=== PATIENT | male | born 1955 | race Caucasian/White ===

== ENCOUNTER → 2022-07-18 13:58 | Outpatient (REF) | payer OTHER, SELFPAY ==
--- NOTE | 2022-07-18 14:01 | CA_ITS ---
Transthoracic Echocardiogram Patient (Last, First, Middle): Anthony Lopez A Gender: Male Date of : 1955 Age: 67 Procedure Date: 07/18/2022 Procedure Type: Transthoracic Echocardiogram Location: OP Height: 170.18 cm Weight: 78.02 kg BSA: 1.90 m2 Heart Rate: bpm BP: 120 / 70 mmHg Ramp Service Agent: LEO Walsh MD: Sita Oglesby MD Jewelry Bearing Maker: Douglas Velasco MD Symptoms: R01.1 - Cardiac murmur, unspecified Study Quality: Adequate ECG Rhythm: Sinus Conclusions: - 1. Normal LV systolic function with mild LVH with impaired relaxation filling pattern and elevated filling pressures 2. Moderate mitral calcification with normal cardiac valvular Doppler 3. No gross pericardial effusion Findings Left Ventricle Normal left ventricular size and systolic function. There is mildly increased left ventricular wall thickness. The visually estimated ejection fraction is between 65-70%. Spectral Doppler is indicative of an impaired relaxation filling pattern. Elevated filling pressures. Right Ventricle Normal right ventricular cavity size and systolic function. Atria The left atrium is likely dilated. The right atrium is normal in size. Aortic Valve There is mild calcification of the aortic valve. There is no aortic valve stenosis. There is no aortic valve regurgitation. Mitral Valve There is mild anterior and moderate posterior mitral leaflet thickening. There is moderate mitral annular calcification. There is trace mitral valve regurgitation. There is no mitral valve stenosis. Pulmonic Valve The pulmonic valve was not well visualized. Tricuspid Valve Likely normal tricuspid valve structure and function. Tricuspid regurgitation envelope is inadequate for calculation of right ventricular systolic pressure. Normal right atrial pressure. Great Vessels All visible segments of the aorta are normal in size. The pulmonary artery was not well visualized. Venous The inferior vena cava is normal in size and collapses greater than 50% with inspiration. Pericardium/Pleural There is no evidence of pericardial effusion. Prior Study Comparison No prior study available for comparison. Measurements 2D Linear Measurements IVSd: 1.29 0.6-0.9/0.6-1.0 cm LVIDd: 3.72 3.9-5.3/4.2-5.9 cm LVIDd Index: 1.96 2.4-3.2/2.2-3.1 cm/m2 LVIDs: 2.75 2.0-3.6 cm LVPWd: 1.13 0.7-1.1 cm LA Diam: 4.10 2.7-3.8/3.0-4.0 cm LAIDs Index: 2.16 1.5-2.3 cm/m2 LV Mass: 187.20 67-162/88-224 g LV Mass Index: 98.52 43-95/49-115 g/m2 LVOT Diam: 2.00 3.0+(-)1.3 cm 2D Systolic Function EF 4C: 69.70 >55% EF 2C: 63.70 >55% EF BiP: 68.30 >55% Mitral Valve MV Pk E: 0.92 MV PK A: 1.01 MV Decel Time: 327.00 E/A: 0.90 E'Lateral: 6.08 E'Medial: 4.87 E/E' Med: 18.90 E/E' Lat: 15.10 PHT: 96.00 MVA PHT: 2.29 Decel [place]: 2.81 Aortic Valve AoV Pk Tho: 0.97 AoV Mn Toh: 0.71 AoV VTI: 0.22 AoV Pk Grad: 4.00 Aov Mn Grad: 2.00 CESAR Cont.VTI: 2.86 LVOT LVOT Pk Tho: 0.95 LVOT Mn Tho: 0.68 LVOT VTI: 0.20 LVOT Pk Grad: 4.00 LVOT Mn Grad: 2.00 LVOT Diam: 2.00 LVOT Area: 3.14 Diastolic Function MV Pk E: 0.92 MV Pk A: 1.01 E/A: 0.90 E'Medial: 4.87 E/E' Med: 18.90 E' Laterial: 6.08 E/E' Lat: 15.10 Right Ventricle TAPSE (mm): 12.60 TVS' Tho: 5.84 Tricuspid Valve RA Press: 3.00 Great Vessels Aorta Sinus of Valsalva: 3.40 2.0-3.5 cm Ao Asc: 2.70 2.1-3.4 cm Pulmonary Valve PV Pk Tho: 0.81 Peak PV Grad: 3.00 Updated in Other Vendor System with Status of Final Douglas Velasco MD electronically signed on 07/19/2022 12:46:45 PM with status of Final
== END ==
LOC: HO.CARD 13:58
PROVIDERS: PCP Internal Medicine; Visit Provider Internal Medicine
DX: R01.1 Cardiac murmur, unspecified (principal); R06.00 Dyspnea, unspecified; R06.89 Other abnormalities of breathing
CPT/HCPCS: 93306

== ENCOUNTER 2023-05-30 09:20 | Outpatient (AMB) | payer OTHER, SELFPAY ==
--- NOTE | 2023-05-30 09:22 | MHC.OFFVIS ---
Intake Vital Signs 05/30/23 09:26 BMI Reason not done Patient refused/unable BP 92/58 L Blood Pressure Location Lt brachial Position Sitting Pulse 58 Pulse Source Pulse Oximeter Intake Visit Reasons: Dm2 Intake Note: New patient present today for Type 2 Diabetes Mellitus. Last Diabetic Eye exam: More than 1 year, waiting for next appointment. Last Podiatry Visit: patient left and right legs are amputated. Random Glucose: 300 mg/dl HgA1C: 9.4% 03/14/2023 Production Controller Required: Yes Production Controller Language: Second Facing Baster Name: Brittney, Medical Staff Information Interpreted: non-clinical & clinical Accompanied by: Brother Venu Allergies No Known Allergies [No Known Allergies*] Allergy (Verified 05/30/23 09:27) HPI HPI Comments History of Present Illness Details 68 YO M who is seen in consultation for T2DM at the request of PCP. Initially diagnosed with T2DM in 20 yrs ago . Never saw endo before Was initially started on treatment with []. Current regimen metformin 1000 mg BID Tresiba 20 units . Novolog 15 units aC Unfortunately, patient not bring log book or glucometer or sensor to visit No Reports low sugars . Family history of T2DM in mother grandmother ? Type . Not Has eyes checked yearly, last eye exam yrs ago , denies retinopathy. has neuropathy, last foot exam , sees podiatry.amputation R AKA 2020 L BKA long time ago Denies nephropathy, Not on STANLEY/ARB. UAC [] as measured on []. Has HLD, on statin. Last LDL [] as measured on []. Denies CAD. CVA while ago Not Had diabetes education. [facility] Medical History (Updated 03/14/23 @ 12:57 by SYDNEY Kumar) Below-knee amputation of right lower extremity Chronic anticoagulation Constipation by delayed colonic transit Depression Diabetes mellitus Difficulty swallowing Dyspnea and respiratory abnormalities GERD (gastroesophageal reflux disease) History of left below knee amputation Hypertension Left shoulder pain Leg edema Long-term use of aspirin therapy Mild depression Mood disorder Neuropathy Pure hypercholesterolemia PVD (peripheral vascular disease) Right shoulder pain Stroke Surgical History Below-knee amputation of left lower extremity History of amputation History of angioplasty Hx of CABG S/P CABG x 3 Family History Father No problems noted. Mother Diabetes Hypertension Son No problems noted. Son No problems noted. Daughter No problems noted. Daughter No problems noted. Social History Housing: House Alcohol intake: former Patient Tobacco Use Status: Former Tobacco user Tobacco use type: Cigarette e-Cigarette/Vaping Use: Never Used Second Hand Smoke Exposure: No service: No Current occupational status: disabled Cognitive needs: Yes Hearing needs: No Vision needs: No Physical Exam Vital Signs: Last Vital Signs Pulse 58 05/30/23 09:26 BP 92/58 L 05/30/23 09:26 Absence of Cushingoid features. Absence of acromegalic features. Neck exam reveals nl size thyroid about 15 gms. No thyroid nodules palpable. No carotid bruits present. Lungs CTA. Heart S1 S2, Reg R/R. No M/R/ G. Skin exam reveals absence of vitiligo or acanthosis nigricans. Abdominal exam reveals Soft NT/ND with NA BS. No organomegaly present. Neck Other: . Extrem Other: Visual exam of foot performed. No ulcerations or open lesions. Right [id number] amputation and left above the knee amputation present Results Reviewed Results Reviewed: 05/30/23 09:37 Glucose, Whole Blood Routine Laboratory Last Values Glucose (Clinic) 300 mg/dL (60-115) H 05/30/23 09:37 Assessment & Plan Assessment & Plan (1) Diabetes mellitus: Code(s): E11.9 - Type 2 diabetes mellitus without complications Qualifiers: Diabetes mellitus complication status: with hyperglycemia Diabetes mellitus half-way insulin use: with middle or intermediate school principal use Diabetes mellitus type: type 2 Qualified Code(s): E11.65 - Type 2 diabetes mellitus with hyperglycemia; Z79.4 - retirement (current) use of insulin Plan: This 68-year-old male with a history of type 2 diabetes being treated with metformin and basal insulin poor glycemic control and known microvascular complications namely neuropathy. Plan is to have the patient check his point cares pre and post meals. Would be a good candidate for a sensor. Could not make any changes to regimen because of lack of data. 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 Will check basic metabolic panel, lipid profile and microalbumin to creatinine ratio. Via a wincher went over the correlation of poor glycemic control to development and progression of complications Orders: Orders Basic Metabolic Panel Today E11.9 - Type 2 diabetes mellitus without complications Lipid Panel Today E11.9 - Type 2 diabetes mellitus without complications Microalbumin, Random (w Creat) Today E11.9 - Type 2 diabetes mellitus without complications Referrals Diabetes Education Referral E11.9 - Type 2 diabetes mellitus without complications Nutrition/Dietitian Referral E11.9 - Type 2 diabetes mellitus without complications Coding Level of Care Code New Pt Level 5 (55391) Diagnoses Diabetes mellitus E11.65; Z79.4 Diabetes mellitus complication status: with hyperglycemia Diabetes mellitus middle or intermediate school principal insulin use: with half-way use Diabetes mellitus type: type 2 Time Spent (min) 60 Comment A total of 60 minutes was spent reviewing chart, seeing patient and dictating
[2023-05-30 09:26] VITALS: BP 92/58; PULSE 58
[2023-05-30 09:40] LABS: Glucose, Whole Blood 300 mg/dL (60-115)
== END 2023-05-30 10:15 | disposition home or self-care (01) ==
PROVIDERS: PCP Internal Medicine; Visit Provider Internal Medicine Endocrinology, Diabetes & Metabolism
DX: E11.65 Type 2 diabetes mellitus with hyperglycemia (principal); Z79.4 Long term (current) use of insulin
CPT/HCPCS: 99205

== ENCOUNTER → 2023-05-30 09:20 | Outpatient (BNVA) | payer OTHER, SELFPAY | PROVIDERS: Visit Provider Internal Medicine Endocrinology, Diabetes & Metabolism | DX: E11.65 Type 2 diabetes mellitus with hyperglycemia (principal); Z79.4 Long term (current) use of insulin | CPT/HCPCS: 82947; 99202 ==

== ENCOUNTER 2023-06-05 07:45 | Outpatient (AMB) | payer OTHER, SELFPAY ==
--- NOTE | 2023-06-05 08:41 | MHC.AMDMED ---
Intake Intake Visit Reasons: DM2 Physician Scientist Required: Yes Physician Scientist Language: Web Press Operator Helper Offset Name: Alis [facility] Accompanied by: Other Relationship Allergies No Known Allergies [No Known Allergies*] Allergy (Verified 05/30/23 09:27) HPI Comprehensive Diabetes Asmnt Most Recent Diabetes Results: No Data to Display [facility] Medical History (Updated 03/14/23 @ 12:57 by SYDNEY Kumar) Below-knee amputation of right lower extremity Chronic anticoagulation Constipation by delayed colonic transit Depression Diabetes mellitus Difficulty swallowing Dyspnea and respiratory abnormalities GERD (gastroesophageal reflux disease) History of left below knee amputation Hypertension Left shoulder pain Leg edema Long-term use of aspirin therapy Mild depression Mood disorder Neuropathy Pure hypercholesterolemia PVD (peripheral vascular disease) Right shoulder pain Stroke Surgical History Below-knee amputation of left lower extremity History of amputation History of angioplasty Hx of CABG S/P CABG x 3 Family History Father No problems noted. Mother Diabetes Hypertension Son No problems noted. Son No problems noted. Daughter No problems noted. Daughter No problems noted. Social History Housing: House Alcohol intake: former Patient Tobacco Use Status: Former Tobacco user Tobacco use type: Cigarette e-Cigarette/Vaping Use: Never Used Second Hand Smoke Exposure: No service: No Current occupational status: disabled Cognitive needs: Yes Hearing needs: No Vision needs: No Assessment & Plan Assessment & Plan (1) Insulin dependent type 2 diabetes mellitus: Code(s): E11.9 - Type 2 diabetes mellitus without complications; Z79.4 - long-term (current) use of insulin Plan: CGM Info Instructed Pt on what CGM can and can't do CGM Can: Give Pt minute by minute reading of glucose levels Displays glucose trend arrows that represents the direction glucose levels are fluctuating Give insight on decisions about how to dose insulin CGM cannot: Improve glucose control on its own Completely eliminate the need for all finger sticks Make dosing decision for you CGM is the reading of glucose in the interstitial fluid not actual blood glucose, finger sticks are still necessary when Pt's symptom?s do not match sensor reading and if sensors prompts Pt to do a fingerstick At this visit patient was not ready to accept CGM recommended Instructed patient he should bring his daughter, who administers his medications and prepares his meals to his next visit Patient Instructions: Contact information given for daughter to call to set up next Diabetes Education appointment Coding Level of Care Code Est Pt Level 1 (90063) Diagnoses Insulin dependent type 2 diabetes mellitus E11.9; Z79.4
== END 2023-06-05 08:46 | disposition home or self-care (01) ==
PROVIDERS: PCP Internal Medicine; Visit Provider Registered Nurse Diabetes Educator
DX: E11.9 Type 2 diabetes mellitus without complications (principal); Z79.4 Long term (current) use of insulin

== ENCOUNTER → 2023-06-05 07:45 | Outpatient (BNVA) | payer OTHER, SELFPAY | PROVIDERS: PCP Internal Medicine; Visit Provider Registered Nurse Diabetes Educator | DX: E11.9 Type 2 diabetes mellitus without complications (principal); Z79.4 Long term (current) use of insulin | CPT/HCPCS: 99211 ==

== ENCOUNTER 2023-06-19 09:44 | Outpatient (AMB) | payer OTHER, SELFPAY ==
--- NOTE | 2023-06-19 09:48 | MHC.PC.OV ---
Vital Signs 06/19/23 09:54 BMI Reason not done Patient refused/unable BP 110/68 Blood Pressure Location Lt brachial Position Sitting Intake Visit Reasons: DM Intake Note: Patient here for a follow up DM Pest Control Worker Required: No Accompanied by: Family/Other Allergies No Known Allergies [No Known Allergies*] Allergy (Verified 06/19/23 09:59) Medication List - Last Reconciled 06/19/23 by Sita Oglesyb MD aspirin (Adult Low Dose Aspirin) 81 mg PO DAILY 30 days atorvastatin 40 mg PO BEDTIME 90 days blood sugar diagnostic (FreeStyle Lite Strips) Use 1 test strip three times a day blood-glucose meter (FreeStyle Lite Meter kit) As directed cholecalciferol (vitamin D3) 50 mcg PO DAILY 90 days clopidogrel (Plavix) 75 mg PO DAILY 30 days divalproex 125 mg PO BID ezetimibe 10 mg PO DAILY 30 days furosemide 20 mg PO DAILY 90 days gabapentin 600 mg (2 x 300 mg) PO TID insulin aspart U-100 15 units (0.15 mL) subcut TID insulin degludec (Tresiba FlexTouch U-100 insulin) 20 units subcut BEDTIME lactulose 10 grams (15 mL) PO BEDTIME PRN 90 days lancets (FreeStyle Lancets) Use 1 lancet three times a day loratadine 10 mg PO DAILY metformin 1,000 mg PO BID metoprolol succinate ER 12.5 mg (1/2 x 25 mg) PO BID pantoprazole 40 mg PO DAILY 90 days pen needle, diabetic (1st Tier Unifine Pentips) Use 1 pen needle 4 times a day pen needle, diabetic (1st Tier Unifine Pentips) Use 1 pen needle 4 times a day sennosides (senna) 8.6 mg PO BEDTIME PRN 30 days sennosides 8.6 mg PO BEDTIME 90 days starch (thickening) ([employer] Thick-It oral powder) 1 ea PO .three times a day PRN 30 days Tobacco use date assessed: 03/14/23 Fall risk assessment: No Falls in past year Last assessed Fall Risk: 06/19/23 Dental Screening Dental Screen Date: 06/19/23 Did you have a dental visit in the last 12 months?: No Did you have a dental problem in the last 6 months where you did not have access to dental care?: No Was dental information given to patient?: Patient declined HPI HPI Comments History of Present Illness Details This is a 68-year-old male with diabetes mellitus type 2 on long-term current use of insulin, mild depression, history of stroke and peripheral vascular disease that comes today accompanied by brother in law complaining of chronic idiopathic constipation and last bowel movement was 7 days ago. A1c elevated and I will increase insulin. Depression is in remission. He had a stroke few years ago and has right hemiplegia but can use left arm. Has bilateral below-knee amputation secondary to peripheral vascular disease due to being a former smoker. He will benefit from a scooter due to his conditions of requiring a wheelchair and said that on all wheelchair give seen more depression. [facility] Medical History (Updated 06/19/23 @ 12:34 by Sita Oglesby MD) Below-knee amputation of right lower extremity Chronic anticoagulation Constipation by delayed colonic transit Depression Diabetes mellitus Difficulty swallowing Dyspnea and respiratory abnormalities GERD (gastroesophageal reflux disease) History of left below knee amputation Hypertension Left shoulder pain Leg edema Long-term use of aspirin therapy Mild depression Mood disorder Neuropathy Pure hypercholesterolemia PVD (peripheral vascular disease) Right shoulder pain Stroke Surgical History Below-knee amputation of left lower extremity History of amputation History of angioplasty Hx of CABG S/P CABG x 3 Family History Father No problems noted. Mother Diabetes Hypertension Son No problems noted. Son No problems noted. Daughter No problems noted. Daughter No problems noted. Social History Housing: House Alcohol intake: former Patient Tobacco Use Status: Former Tobacco user Tobacco use type: Cigarette e-Cigarette/Vaping Use: Never Used Second Hand Smoke Exposure: No service: No Current occupational status: disabled Cognitive needs: Yes Hearing needs: No Vision needs: No Questionnaire Thrive Questionnaire Date Thrive assessed: 03/14/23 HANNA-7 AMB Questionnaire HANNA-7 Date HANNA - 7 assessed: 03/14/23 Source: Developed by Drs. Moose Garcia, Sadia Wilkins, Andrés Jeffery and colleagues, with an educational mario from [employer]. Review of Systems Const All systems reviewed & are unremarkable except as noted in HPI and below Eyes Reports no additional complaints, Denies change in vision and Denies other visual disturbances Card Denies chest pain at rest, Denies chest pain with activity, Denies edema, Denies irregular heart rhythm, Denies claudication, Denies dyspnea, Denies dyspnea on exertion, Denies orthopnea, Denies paroxysmal nocturnal dyspnea and Denies slow heart rate Resp Denies cough, Denies dyspnea and Denies dyspnea on exertion GI Denies abdominal pain, Denies change in bowel habits, Denies excessive flatus, Denies nausea and Denies vomiting Denies urinary hesitancy, Denies urinary incontinence and Denies urinary urgency Musc Denies abnormal gait, Denies atrophy, Denies deformity and Denies limited range of motion Skin/Breast Denies bleeding lesions, Denies changing lesions and Denies rash Neuro Denies abnormal gait and Denies lack of coordination Physical exam (Primary Care) Vital Signs: Last Vital Signs BP 110/68 06/19/23 09:54 Tobacco/Smoking Status: Tobacco use Status Tobacco use date assessed 03/14/23 06/19/23 09:49 Patient Tobacco Use Status Former Tobacco user 06/19/23 09:49 Tobacco use type Cigarette 06/19/23 09:49 e-Cigarette/Vaping Use Never Used 06/19/23 09:49 Thrive Assessment: Date of Thrive Assessment Date Thrive assessed 03/14/23 06/19/23 09:49 Eyes General: appearance normal, both eyes and all related structures Eyelids: Yes eyelids normal Conjunctivae: conjunctivae normal Neck Neck: Yes normal visual inspection and Yes supple Resp Effort & Inspection: normal respiratory effort Auscultation: clear to auscultation bilaterally Cardio Jugular venous distension: no JVD Rate: regular rate Rhythm: regular rhythm Heart sounds: S1 normal heart sound present and S2 normal heart sound present Extrem General: Yes full ROM Results AMB Hemoglobin A1c AMB Hemoglobin A1c 8.3 % Last Edit by MARQUEZ Shine on 06/19/23 10:00 Results Reviewed Results Reviewed: Laboratory Last Values Hgb A1c (Clinic) 8.3 % (4.0-6.0) H 06/19/23 09:47 Assessment and Plan Assessment & Plan (1) Insulin dependent type 2 diabetes mellitus: Code(s): E11.9 - Type 2 diabetes mellitus without complications; Z79.4 - [facility] (current) use of insulin Plan: Continue insulin. A1c goal is equal or less than 7%. (2) Mild depression: Code(s): F32.0 - Major depressive disorder, single episode, mild Plan: In remission (3) PVD (peripheral vascular disease): Code(s): I73.9 - Peripheral vascular disease, unspecified Plan: Continue aspirin and Plavix. (4) Stroke: Code(s): I63.9 - Cerebral infarction, unspecified Qualifiers: CVA mechanism: unspecified Qualified Code(s): I63.9 - Cerebral infarction, unspecified Plan: Continue aspirin and Plavix for secondary prophylaxis. (5) Chronic idiopathic constipation: Code(s): K59.04 - Chronic idiopathic constipation Plan: Restart lactulose as needed. Orders: Orders Vitamin B12 and Folate Today E53.8 - Deficiency of other specified B group vitamins Comprehensive Goodman. Panel Fast Today F01.51 - Vascular dementia, unspecified severity, with behavioral disturbance IRON PROFILE Today D64.9 - Anemia, unspecified Lipid Panel Today E78.5 - Hyperlipidemia, unspecified Vitamin D 25-OH Total Today E55.9 - Vitamin D deficiency, unspecified Microalbumin, Random (w Creat) Today E11.9 - Type 2 diabetes mellitus without complications Complete Blood Count Auto Diff Today D64.9 - Anemia, unspecified AMB Hemoglobin A1c Today E11.9 - Type 2 diabetes mellitus without complications Medications: Changed From insulin degludec (Tresiba FlexTouch U-100 insulin) 20 units subcut BEDTIME E11.65 - Type 2 diabetes mellitus with hyperglycemia, Z79.4 - middle or intermediate school principal (current) use of insulin To insulin degludec (Tresiba FlexTouch U-100 insulin) 25 units subcut BEDTIME E11.65 - Type 2 diabetes mellitus with hyperglycemia, Z79.4 - [facility] (current) use of insulin Refilled lactulose 10 grams (15 mL) PO BEDTIME 90 days PRN 473 mL 2RF constipation K59.01 - Slow transit constipation Coding Level of Care Code Est Pt Level 4 (84627) Diagnoses Insulin dependent type 2 diabetes mellitus E11.9; Z79.4 Mild depression F32.0 PVD (peripheral vascular disease) I73.9 Stroke I63.9 CVA mechanism: unspecified Chronic idiopathic constipation K59.04 Time Spent (min) 26
[2023-06-19 09:54] VITALS: BP 110/68
== END 2023-06-19 10:18 | disposition home or self-care (01) ==
PROVIDERS: PCP Internal Medicine; Visit Provider Internal Medicine
DX: E11.51 Type 2 diabetes mellitus with diabetic peripheral angiopathy without gangrene (principal); Z79.4 Long term (current) use of insulin; F32.0 Major depressive disorder, single episode, mild; I73.9 Peripheral vascular disease, unspecified; Z86.73 Personal history of transient ischemic attack (TIA), and cerebral infarction without residual deficits; K59.04 Chronic idiopathic constipation
CPT/HCPCS: 83036; 99214

== ENCOUNTER 2023-07-17 09:27 | Outpatient (AMB) | payer OTHER, SELFPAY ==
--- NOTE | 2023-07-17 09:37 | A.OFFVIS_ITS ---
Intake VS Expanded 07/17/23 15:48 Comment Pt in wheelchair/bilateral BKA Intake Visit Reasons: DM2 Allergies No Known Allergies [No Known Allergies*] Allergy (Verified 06/19/23 09:59) HPI Nutrition Presentation Details Pt presents for MNT for T2DM. Pt was referred by Dr Dan Pt suffered a stroke > 7 yrs , Pt has difficulties speaking. Pt presents with daughter who helps with meals preparation. typical meal B: sand ham/cheese/egg most days or hot cereal , coffee and water or diet soda L/d: rice/zelaya/meat/juice snack: sand, juice, physical activity: sedentary, Pt w bilateral below knee amputation smoking: denies Daughter reports Pt moved in with her recently, daughter verbalizes needing education on relationship of food to BG and meal planning Diagnosis Nutrition problem #1 food nutri know defi As related to (etiology) #1 diagnosis As evidenced by (sign/symptom) #1 knowledge deficit of diet Most Recent Diabetes Results: No Data to Display [facility] Medical History Below-knee amputation of right lower extremity Chronic anticoagulation Constipation by delayed colonic transit Depression Diabetes mellitus Difficulty swallowing Dyspnea and respiratory abnormalities GERD (gastroesophageal reflux disease) History of left below knee amputation Hypertension Left shoulder pain Leg edema Long-term use of aspirin therapy Mild depression Mood disorder Neuropathy Pure hypercholesterolemia PVD (peripheral vascular disease) Right shoulder pain Stroke Surgical History Below-knee amputation of left lower extremity History of amputation History of angioplasty Hx of CABG S/P CABG x 3 Family History Father No problems noted. Mother Diabetes Hypertension Son No problems noted. Son No problems noted. Daughter No problems noted. Daughter No problems noted. Social History Housing: House Alcohol intake: former Patient Tobacco Use Status: Former Tobacco user Tobacco use type: Cigarette e-Cigarette/Vaping Use: Never Used Second Hand Smoke Exposure: No service: No Current occupational status: disabled Cognitive needs: Yes Hearing needs: No Vision needs: No Assessment & Plan Assessment & Plan (1) Diabetes mellitus: Code(s): E11.9 - Type 2 diabetes mellitus without complications Qualifiers: Diabetes mellitus type: type 2 Diabetes mellitus marine oil terminal superintendent insulin use: with marine oil terminal superintendent use Diabetes mellitus complication status: with hyperglycemia Qualified Code(s): E11.65 - Type 2 diabetes mellitus with hyperglycemia; Z79.4 - assisted (current) use of insulin Plan: Information reviewed along with daughter who prepares meals for Pt Est kcal needs 1500- (40% carb, 30% protein/fat) Est fluid needs as per 25-30 ml/d: 7685-2068 Recommend fiber intake : 8-10 g per day and gradually increase to 25-28 g per day for women and 35-38 g for men or as tolerated Recommend sodium intake per day : less than 2000 mg Educated patient on: ( R = reviewed V = verbalizes understanding N/R = needs review N/A = not applicable * Food sources of carbohydrate, adequate serving sizes and its role in various health conditions: R * Differences between complex carbohydrates a simple carbohydrates, role of fiber in diet: R * lean protein sources of foods ;R * Differences between types of fats and role in diet (mono on saturated fat fatty acids, saturated fatty acids, trans fats): NR * Food sources of sodium in salt and healthy modifications for heart health in kidney health: NR * Healthy plate method concept: R V * Physical activity: Benefits a precaution: NR * Hypoglycemia protocol (rule of 15): R * Dietary prevention of Hyperglycemia: R Patient Instructions: Follow healthy plate method see meal plan ideas Choose warm tea, low sugar beverages continue monitoring glucose as prescribed by physician call for questions prior to next appt Coding Level of Care Code Nutr Indiv Intake (24264) Diagnoses Type 2 diabetes mellitus with hyperglycemia, with long-term current use of insulin E11.65; Z79.4 Diabetes mellitus type: type 2 Diabetes mellitus senior care insulin use: with marine oil terminal superintendent use Diabetes mellitus complication status: with hyperglycemia Time Spent (min) 40
== END 2023-07-17 10:27 | disposition home or self-care (01) ==
PROVIDERS: PCP Internal Medicine; Visit Provider Dietitian, Registered
DX: E11.65 Type 2 diabetes mellitus with hyperglycemia (principal); Z79.4 Long term (current) use of insulin

== ENCOUNTER → 2023-07-17 09:27 | Outpatient (BNVA) | payer OTHER, SELFPAY | PROVIDERS: PCP Internal Medicine; Visit Provider Dietitian, Registered | DX: E11.65 Type 2 diabetes mellitus with hyperglycemia (principal); Z79.4 Long term (current) use of insulin; Z71.3 Dietary counseling and surveillance | CPT/HCPCS: 97802 ==

== ENCOUNTER 2023-08-27 09:05 | Outpatient (REF) | payer OTHER, SELFPAY ==
[2023-08-27 09:31] LABS: MANUAL DIFF FLAG NO
[2023-08-27 10:27] LABS: Basophils Absolute Auto 0.1 X10*3/uL (0.0-0.2); Eosinophils Absolute Auto 0.3 X10*3/uL (0.0-0.4); Eosinophils Percent Auto 5.5 % (0-4); Hematocrit 36.1 % (42.0-52.0); Hemoglobin 11.4 g/dl (14.0-18.0); Imm Gran Abs Auto 0.02 X10*3/uL (0.00-0.03); Imm Gran Pct Auto 0.3 % (0.0-0.4); Lymphocytes Absolute Auto 2.6 X10*3/uL (1.2-4.9); Lymphocytes Percent Auto 43.6 % (20-40); Mean Corpuscular HGB Conc 31.6 g/dl (31.0-36.0); Mean Corpuscular Volume 85.3 fL (80.0-98.0); Mean Platelet Volume 12.5 fL (9.4-12.4); Monocytes Absolute Auto 0.3 X10*3/uL (0.1-1.2); Monocytes Percent Auto 5.7 % (2-11); Neutrophils Absolute Auto 2.6 x10*3/uL (2.0-8.3); Neutrophils Percent Auto 43.9 % (45-73); Platelet Count 150 X10*3/uL (160-400); Red Blood Count 4.23 X10*6/uL (4.60-5.80)
== END 2023-08-27 09:06 | disposition home or self-care (01) ==
LOC: HO.LAB 09:05
PROVIDERS: PCP Internal Medicine; Visit Provider Internal Medicine
DX: D64.9 Anemia, unspecified (principal); F01.50 Vascular dementia, unspecified severity, without behavioral disturbance, psychotic disturbance, mood disturbance, and anxiety; E78.5 Hyperlipidemia, unspecified; E53.8 Deficiency of other specified B group vitamins; E55.9 Vitamin D deficiency, unspecified
CPT/HCPCS: 36415; 80053; 80061; 82306; 82607; 82746; 83540; 85025

== ENCOUNTER 2023-08-28 09:20 | Outpatient (AMB) | payer OTHER, SELFPAY ==
--- NOTE | 2023-08-28 09:37 | A.OFFVIS_ITS ---
Intake VS Expanded 08/28/23 10:11 Comment Pt in wheelchair d/t bka Intake Visit Reasons: T2DM Allergies No Known Allergies [No Known Allergies*] Allergy (Verified 08/28/23 10:05) HPI Nutrition Presentation Details Pt presents for MNT follow up for T2DM. Pt is in a wheelchair due to s/p below knee amputation Pt has hx of vascular dementia , PVD Did not bring meter to this appt Daughter reports BG ranging from 120-207 mg/dl . Reports noticing higher bg if omitting 12 pm snack Pt reports having pain in his hands and daughter is monitoring blood sugar multiple times in the day and is requesting glucose sensor Pt is also in Plavix and Pt has increased bleeding after finger sticks. This request was relayed to the doctor for glucose sensor rx Typical meal 8-9 am have hot cereal or ham/cheese /e gg , coffee with diet, milk 12: fruit or fritter and coffee or are pa 2 pm rice/beans or root vegetables with pork loin or tuna , diet coke 8 pm : bread with butter or ravi , and c offee with milk and diet sugar Most Recent Diabetes Results: Cholesterol 90 mg/dL (<200) 08/27/23 HDL Cholesterol 28 mg/dL (>40) L 08/27/23 Triglycerides 60 mg/dL (<150) 08/27/23 Creatinine 0.90 mg/dL (0.5-1.4) 08/27/23 Blood Urea Nitrogen 16 mg/dL (9-16) 08/27/23 Sodium 144 mmol/L (135-145) 08/27/23 Potassium 4.2 mmol/L (3.3-5.1) 08/27/23 Chloride 107 mmol/L (96-108) 08/27/23 Carbon Dioxide 29 mmol/L (22-29) 08/27/23 Calcium 9.8 mg/dL (8.4-10.2) 08/27/23 AST 17 U/L (5-37) 08/27/23 ALT 16 U/L (0-40) 08/27/23 Total Protein 6.9 g/dL (6.5-8.0) 08/27/23 Albumin 4.2 g/dL (3.5-5.0) 08/27/23 [facility] Medical History Below-knee amputation of right lower extremity Chronic anticoagulation Constipation by delayed colonic transit Depression Diabetes mellitus Difficulty swallowing Dyspnea and respiratory abnormalities GERD (gastroesophageal reflux disease) History of left below knee amputation Hypertension Left shoulder pain Leg edema Long-term use of aspirin therapy Mild depression Mood disorder Neuropathy Pure hypercholesterolemia PVD (peripheral vascular disease) Right shoulder pain Stroke Surgical History History of amputation Hx of CABG Below-knee amputation of left lower extremity History of angioplasty S/P CABG x 3 Family History Father No problems noted. Mother Diabetes Hypertension Son No problems noted. Son No problems noted. Daughter No problems noted. Daughter No problems noted. Social History Housing: House Alcohol intake: former Patient Tobacco Use Status: Former Tobacco user Tobacco use type: Cigarette e-Cigarette/Vaping Use: Never Used Second Hand Smoke Exposure: No service: No Current occupational status: disabled Cognitive needs: Yes Hearing needs: No Vision needs: No Assessment & Plan Assessment & Plan (1) Diabetes mellitus: Code(s): E11.9 - Type 2 diabetes mellitus without complications Qualifiers: Diabetes mellitus complication status: with hyperglycemia Diabetes mellitus senior care insulin use: with senior care use Diabetes mellitus type: type 2 Qualified Code(s): E11.65 - Type 2 diabetes mellitus with hyperglycemia; Z79.4 - intermediate teacher (current) use of insulin Plan: Recommend reducing on salt and choosing MUFA/PUFA Est kcal needs 1500- (40% carb, 30% protein/fat) Est fluid needs as per 25-30 ml/d: 6439-0553 Recommend fiber intake : 8-10 g per day and gradually increase to 25-28 g per day for women and 35-38 g for men or as tolerated Recommend sodium intake per day : less than 2000 mg Educated patient on: ( R = reviewed V = verbalizes understanding N/R = needs review N/A = not applicable * Food sources of carbohydrate, adequate serving sizes and its role in various health conditions: R * Differences between complex carbohydrates a simple carbohydrates, role of fiber in diet: R * lean protein sources of foods ;R * Differences between types of fats and role in diet (mono on saturated fat fatty acids, saturated fatty acids, trans fats): NR * Food sources of sodium in salt and healthy modifications for heart health in kidney health: NR * Healthy plate method concept: R V * Physical activity: Benefits a precaution: NR * Hypoglycemia protocol (rule of 15): R * Dietary prevention of Hyperglycemia: R Patient Instructions: Provide a snack in between meals to prevent long hours without eating , choose snack : yogurt, fruit, 4 crackers with peanut butter , choose those low in salt and 20 g carbs/5-12 g prot Reduce on salt/sodium ( switch to light/diet lemonade from diet soda, choose low sodium seasonings ) Coding Level of Care Code Nutr Indiv Subseq (20661) Diagnoses Type 2 diabetes mellitus with hyperglycemia, with long-term current use of insulin E11.65; Z79.4 Diabetes mellitus complication status: with hyperglycemia Diabetes mellitus intermediate teacher insulin use: with intermediate teacher use Diabetes mellitus type: type 2 Time Spent (min) 20
== END 2023-08-28 10:25 | disposition home or self-care (01) ==
PROVIDERS: PCP Internal Medicine; Visit Provider Dietitian, Registered
DX: E11.65 Type 2 diabetes mellitus with hyperglycemia (principal); Z79.4 Long term (current) use of insulin

== ENCOUNTER 2023-08-28 09:20 | Outpatient (AMB) | payer OTHER, SELFPAY ==
--- NOTE | 2023-08-28 09:34 | MHC.OFFVIS ---
Intake Vital Signs 08/28/23 10:04 BP 100/72 Blood Pressure Location Rt brachial Position Sitting Pulse 62 Pulse Source Pulse Oximeter Intake Visit Reasons: DM2 Intake Note: Patient present today to follow up on Type Diabetes Mellitus. Last Diabetic Eye exam: over 1 year Last Podiatry Visit: None Random Glucose: 241 mg/dl HgA1C: 8.3% 06/19/2023 Broadcasting Equipment Mechanic Required: Yes Broadcasting Equipment Mechanic Language: Contract[employer] Building Name: [facility] Information Interpreted: non-clinical & clinical Accompanied by: Family/Other Allergies No Known Allergies [No Known Allergies*] Allergy (Verified 08/28/23 10:05) HPI HPI Comments History of Present Illness Details 68 YO M who is seen in consultation for T2DM at the request of PCP. Initially diagnosed with T2DM in 20 yrs ago . Never saw endo before Was initially started on treatment with []. Current regimen metformin 1000 mg BID Tresiba 20 units . Novolog 15 units aC Unfortunately, patient not bring log book or glucometer or sensor to visit No Reports low sugars . Family history of T2DM in mother grandmother ? Type . Not Has eyes checked yearly, last eye exam needs to make appt , denies retinopathy. has neuropathy, last foot exam , sees podiatry.amputation R AKA 2020 L BKA long time ago Denies nephropathy, Not on STANLEY/ARB. UAC [] as measured on []. Has HLD, on statin. Last LDL [] as measured on []. Denies CAD. CVA while ago Not Had diabetes education. [facility] Medical History Below-knee amputation of right lower extremity Chronic anticoagulation Constipation by delayed colonic transit Depression Diabetes mellitus Difficulty swallowing Dyspnea and respiratory abnormalities GERD (gastroesophageal reflux disease) History of left below knee amputation Hypertension Left shoulder pain Leg edema Long-term use of aspirin therapy Mild depression Mood disorder Neuropathy Pure hypercholesterolemia PVD (peripheral vascular disease) Right shoulder pain Stroke Surgical History Below-knee amputation of left lower extremity History of amputation History of angioplasty Hx of CABG S/P CABG x 3 Family History Father No problems noted. Mother Diabetes Hypertension Son No problems noted. Son No problems noted. Daughter No problems noted. Daughter No problems noted. Social History Housing: House Alcohol intake: former Patient Tobacco Use Status: Former Tobacco user Tobacco use type: Cigarette e-Cigarette/Vaping Use: Never Used Second Hand Smoke Exposure: No service: No Current occupational status: disabled Cognitive needs: Yes Hearing needs: No Vision needs: No Physical Exam Vital Signs: Last Vital Signs Pulse 62 08/28/23 10:04 BP 100/72 08/28/23 10:04 Absence of Cushingoid features. Absence of acromegalic features. Neck exam reveals nl size thyroid about 15 gms. No thyroid nodules palpable. No carotid bruits present. Lungs CTA. Heart S1 S2, Reg R/R. No M/R/ G. Skin exam reveals absence of vitiligo or acanthosis nigricans. Abdominal exam reveals Soft NT/ND with NA BS. No organomegaly present. Neck Other: . Extrem Other: Visual exam of foot performed. No ulcerations or open lesions. Right [id number] amputation and left above the knee amputation present Results Reviewed Results Reviewed: 08/28/23 10:07 Glucose, Whole Blood Routine Laboratory Last Values Glucose (Clinic) 241 mg/dL (60-115) H 08/28/23 10:07 Assessment & Plan Assessment & Plan (1) Diabetes mellitus: Code(s): E11.9 - Type 2 diabetes mellitus without complications Qualifiers: Diabetes mellitus type: type 2 Diabetes mellitus residential insulin use: with residential use Diabetes mellitus complication status: with hyperglycemia Qualified Code(s): E11.65 - Type 2 diabetes mellitus with hyperglycemia; Z79.4 - intermediate teacher (current) use of insulin Plan: This 68-year-old male with a history of type 2 diabetes being treated with metformin and basal insulin poor glycemic control and known microvascular complications namely neuropathy. Plan is to have the patient check his point cares pre and post meals. Would be a good candidate for a sensor and I prescribed a Horace 2.. Could not make any changes to regimen because of lack of data. Will send patient to patient educator and camp dining room attendant. Via a handbag parts cutter went over the correlation of poor glycemic control to development and progression of complications Medications: New blood-glucose sensor (FreeStyle Horace 3 Sensor device) As directed change every 14 days 2 ea 5RF flash glucose scanning reader (JustFamily Horace 2 [place]) As directed 1 ea 0RF Coding Level of Care Code Est Pt Level 4 (78749) Diagnoses Type 2 diabetes mellitus with hyperglycemia, with long-term current use of insulin E11.65; Z79.4 Diabetes mellitus type: type 2 Diabetes mellitus residential insulin use: with salvage determiner use Diabetes mellitus complication status: with hyperglycemia
[2023-08-28 10:04] VITALS: BP 100/72; PULSE 62
[2023-08-28 10:11] LABS: Glucose, Whole Blood 241 mg/dL (60-115)
== END 2023-08-28 11:25 | disposition home or self-care (01) ==
PROVIDERS: PCP Internal Medicine; Visit Provider Internal Medicine Endocrinology, Diabetes & Metabolism
DX: E11.65 Type 2 diabetes mellitus with hyperglycemia (principal); Z79.4 Long term (current) use of insulin
CPT/HCPCS: 99214

== ENCOUNTER → 2023-08-28 09:20 | Outpatient (BNVA) | payer OTHER, SELFPAY | PROVIDERS: PCP Internal Medicine; Visit Provider Internal Medicine Endocrinology, Diabetes & Metabolism | DX: E11.65 Type 2 diabetes mellitus with hyperglycemia (principal); Z79.4 Long term (current) use of insulin; Z71.3 Dietary counseling and surveillance | CPT/HCPCS: 82947; 97803; 99212 ==

== ENCOUNTER 2023-10-30 10:25 | Outpatient (AMB) | payer OTHER, SELFPAY ==
--- NOTE | 2023-10-30 10:32 | A.OFFPC_ITS ---
Vital Signs 10/30/23 10:34 BMI Reason not done Patient refused/unable BP 118/72 Blood Pressure Location Lt brachial Position Sitting Intake Visit Reasons: 4 month follow up/DM Intake Note: Patient here for a 4 month follow up Industrial Organizational Psychologist Required: No Accompanied by: Sister Allergies No Known Allergies [No Known Allergies*] Allergy (Verified 10/30/23 10:41) Medication List - Last Reconciled 10/30/23 by Sita Oglesby MD [adult diapers As directed] [adult wipes As directed] aspirin (Adult Low Dose Aspirin) 81 mg PO DAILY 30 days atorvastatin 40 mg PO BEDTIME 90 days blood sugar diagnostic (FreeStyle Lite Strips) Use 1 test strip three times a day blood-glucose meter (FreeStyle Lite Meter kit) As directed cholecalciferol (vitamin D3) 50 mcg PO DAILY 90 days clopidogrel (Plavix) 75 mg PO DAILY 30 days disposable gloves As directed divalproex 125 mg PO BID ezetimibe 10 mg PO DAILY 30 days flash glucose scanning reader (RegenStyle Horace 2 [place]) As directed flash glucose scanning reader (FreeStyle Horace 2 [place]) As directed flash glucose sensor (FreeStyle Horace 2 Sensor kit) As directed change every 14 days furosemide 20 mg PO DAILY 90 days gabapentin 600 mg (2 x 300 mg) PO TID hospital bed lifetime insulin aspart U-100 15 units (0.15 mL) subcut TID insulin degludec (Tresiba FlexTouch U-100 insulin) 25 units (0.25 mL) subcut BEDTIME lactulose 10 grams (15 mL) PO BEDTIME PRN 90 days lancets (FreeStyle Lancets) Use 1 lancet three times a day loratadine 10 mg PO DAILY metformin 1,000 mg PO BID metoprolol succinate ER 12.5 mg (1/2 x 25 mg) PO BID pantoprazole 40 mg PO DAILY 90 days pen needle, diabetic (1st Tier Unifine Pentips) Use 1 pen needle 4 times a day pen needle, diabetic (1st Tier Unifine Pentips) Use 1 pen needle 4 times a day [scooter As directed] sennosides (senna) 8.6 mg PO BEDTIME PRN 30 days sennosides 8.6 mg PO BEDTIME 90 days starch (thickening) (Diafoods Thick-It oral powder) 1 ea PO .three times a day PRN 30 days Tobacco use date assessed: 03/14/23 Fall risk assessment: No Falls in past year Last assessed Fall Risk: 10/30/23 Dental Screening Dental Screen Date: 10/30/23 Did you have a dental visit in the last 12 months?: No Did you have a dental problem in the last 6 months where you did not have access to dental care?: No Was dental information given to patient?: Patient declined HPI HPI Comments History of Present Illness Details This is a 68-year-old male with diabetes mellitus type 2, mood disorder, vascular dementia with behavioral disturbances and constipation that comes accompanied by sister for follow-up on his conditions. A1c not on goal and I will increase insulin. He follows with endocrinology. Continue senna for constipation. Continue aspirin for his vascular dementia. On Depakote for his mood disorder that has been well control. He has bilateral leg amputation and has prothesis. Will want to try a walker to see if he can use he is prothesis. [facility] Medical History (Updated 10/30/23 @ 10:59 by Sita Oglesby MD) Right shoulder pain Left shoulder pain Mild depression Dyspnea and respiratory abnormalities Below-knee amputation of right lower extremity History of left below knee amputation Stroke Difficulty swallowing PVD (peripheral vascular disease) Diabetes mellitus Leg edema Constipation by delayed colonic transit Depression Neuropathy Mood disorder Long-term use of aspirin therapy GERD (gastroesophageal reflux disease) Pure hypercholesterolemia Chronic anticoagulation Hypertension Surgical History History of amputation Hx of CABG Below-knee amputation of left lower extremity History of angioplasty S/P CABG x 3 Family History Father No problems noted. Mother Diabetes Hypertension Son No problems noted. Son No problems noted. Daughter No problems noted. Daughter No problems noted. Social History Housing: House Alcohol intake: former Patient Tobacco Use Status: Former Tobacco user Tobacco use type: Cigarette e-Cigarette/Vaping Use: Never Used Second Hand Smoke Exposure: No service: No Current occupational status: disabled Cognitive needs: Yes Hearing needs: No Vision needs: No Questionnaire Thrive Questionnaire Date Thrive assessed: 03/14/23 HANNA-7 AMB Questionnaire HANNA-7 Date HANNA - 7 assessed: 03/14/23 Source: Developed by Drs. Moose Garcia, Sadia Wilkins, Andrés Jeffery and colleagues, with an educational mario from [employer] [place] Review of Systems Const All systems reviewed & are unremarkable except as noted in HPI and below Eyes Reports no additional complaints, Denies change in vision and Denies other visual disturbances Card Denies chest pain at rest, Denies chest pain with activity, Denies edema, Denies irregular heart rhythm, Denies claudication, Denies dyspnea, Denies dyspnea on exertion, Denies orthopnea, Denies paroxysmal nocturnal dyspnea and Denies slow heart rate Resp Denies cough, Denies dyspnea and Denies dyspnea on exertion GI Denies abdominal pain, Denies change in bowel habits, Denies excessive flatus, Denies nausea and Denies vomiting Denies urinary hesitancy, Denies urinary incontinence and Denies urinary urgency Musc Denies abnormal gait, Denies atrophy, Denies deformity and Denies limited range of motion Skin/Breast Denies bleeding lesions, Denies changing lesions and Denies rash Neuro Denies abnormal gait and Denies lack of coordination Physical exam (Primary Care) Vital Signs: Last Vital Signs BP 118/72 10/30/23 10:34 Tobacco/Smoking Status: Tobacco use Status Tobacco use date assessed 03/14/23 10/30/23 10:33 Patient Tobacco Use Status Former Tobacco user 10/30/23 10:33 Tobacco use type Cigarette 10/30/23 10:33 e-Cigarette/Vaping Use Never Used 10/30/23 10:33 Thrive Assessment: Date of Thrive Assessment Date Thrive assessed 03/14/23 10/30/23 10:33 Const Limitations: wheelchair Eyes General: appearance normal, both eyes and all related structures Eyelids: Yes eyelids normal Conjunctivae: conjunctivae normal Neck Neck: Yes normal visual inspection and Yes supple Resp Effort & Inspection: normal respiratory effort Auscultation: clear to auscultation bilaterally Cardio Jugular venous distension: no JVD Rate: regular rate Rhythm: regular rhythm Heart sounds: S1 normal heart sound present and S2 normal heart sound present Extrem Other: right below knee amputation, left above knee amputation Office Procedures Flu Questionnaire Does the patient have a severe egg allergy?: No Results AMB Hemoglobin A1c AMB Hemoglobin A1c 9.4 % Last Edit by MARQUEZ Shine on 10/30/23 10:4 8 Immunizations flu vacc [id number] 6mos up(PF) 60 mcg(15 mcgx4)/0.5 mL IM syringe Performing Provider: Sita Oglesby MD [facility] Documented (not given) by: MARQUEZ Shine on 10/30/23 10:37 Reason Not Given: Patient Refused Results Reviewed Results Reviewed: Laboratory Last Values Hgb A1c (Clinic) 9.4 % (4.0-6.0) H 10/30/23 10:29 Assessment and Plan Assessment & Plan (1) Vascular dementia with behavior disturbance: Code(s): F01.51 - Vascular dementia, unspecified severity, with behavioral disturbance Plan: Continue aspirin. Continue family support. (2) Diabetes mellitus: Code(s): E11.9 - Type 2 diabetes mellitus without complications Qualifiers: Diabetes mellitus type: type 2 Diabetes mellitus detention insulin use: with terminal block assembler use Diabetes mellitus complication status: with hyperglycemia Qualified Code(s): E11.65 - Type 2 diabetes mellitus with hyperglycemia; Z79.4 - termite treater helper (current) use of insulin Plan: Increase long-acting insulin. Continue short-acting insulin. A1c goal is equal or less than 7%. Follow-up with endocrinology. (3) Constipation by delayed colonic transit: Code(s): K59.01 - Slow transit constipation Plan: Continue senna as needed. (4) Mood disorder: Code(s): F39 - Unspecified mood [affective] disorder Plan: Continue depakote. Orders: Orders AMB Hemoglobin A1c Today E11.9 - Type 2 diabetes mellitus without complications Influenza [id number] Immunization Today Z23 - Encounter for immunization Medications: New walker As directed 1 ea 0RF Z89.511 - Acquired absence of right leg below knee, Z89.512 - Acquired absence of left leg below knee Changed From insulin degludec (Tresiba FlexTouch U-100 insulin) 25 units (0.25 mL) subcut BEDTIME 15 mL 3RF E11.65 - Type 2 diabetes mellitus with hyperglycemia, Z79.4 - termite treater helper (current) use of insulin To insulin degludec (Tresiba FlexTouch U-100 insulin) 28 units (0.28 mL) subcut BEDTIME 90 days 25.2 mL 3RF E11.65 - Type 2 diabetes mellitus with h yperglycemia, Z79.4 - termite treater helper (current) use of insulin Refilled [adult diapers briefs] As directed 180 ea 11RF R32 - Unspecified urinary incontinence Coding Level of Care Code Est Pt Level 4 (67743) Diagnoses Vascular dementia with behavior disturbance F01.51 Type 2 diabetes mellitus with hyperglycemia, with long-term current use of insulin E11.65; Z79.4 Diabetes mellitus type: type 2 Diabetes mellitus detention insulin use: with detention use Diabetes mellitus complication status: with hyperglycemia Constipation by delayed colonic transit K59.01 Mood disorder F39 Time Spent (min) 23
[2023-10-30 10:34] VITALS: BP 118/72
== END 2023-10-30 10:57 | disposition home or self-care (01) ==
PROVIDERS: PCP Internal Medicine; Visit Provider Internal Medicine
DX: E11.65 Type 2 diabetes mellitus with hyperglycemia (principal); F01.518 Vascular dementia, unspecified severity, with other behavioral disturbance; Z79.4 Long term (current) use of insulin; F39 Unspecified mood [affective] disorder; K59.01 Slow transit constipation
CPT/HCPCS: 83036; 99214

== ENCOUNTER → 2024-04-14 10:49 | Outpatient (REF) | payer OTHER, SELFPAY ==
--- NOTE | 2024-04-14 10:53 | CA_ITS ---
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 The calculated ejection fraction is 57% by biplane method. - Evidence suggests grade II (moderate) diastolic dysfunction. - The basal inferior and mid inferior segments are akinetic. - The inferolateral wall is hypokinetic. - The left atrium is severely dilated. Findings Left Ventricle Normal left ventricular cavity size. There is severely increased left ventricular wall thickness. The left ventricular systolic function is normal. The calculated ejection fraction is 57% by biplane method. Evidence suggests grade II (moderate) diastolic dysfunction. Wall Motion Rest Echo Findings The inferolateral wall is hypokinetic. The basal inferior and mid inferior segments are akinetic. Right Ventricle Mildly increased right ventricular cavity size. There is mildly decreased right ventricular systolic function. Atria The left atrium is severely dilated. The right atrium is normal in size. Aortic Valve There is a normal trileaflet aortic valve. There is no aortic valve stenosis. There is no aortic valve regurgitation. Mitral Valve The mitral valve appears normal. There is mild mitral annular calcification. There is trace mitral valve regurgitation. There is no mitral valve stenosis. Pulmonic Valve The pulmonic valve is likely normal. Tricuspid Valve There is trace tricuspid valve regurgitation. There is no evidence of pulmonary hypertension. Great Vessels The asc aorta is normal in size. Venous The inferior vena cava is normal in size and collapses greater than 50% with inspiration. Pericardium/Pleural There is no evidence of pericardial effusion. Prior Study Comparison No significant change compared to prior study dated: 07/18/2022. (images reviewed) Measurements 2D Linear Measurements IVSd: 1.56 0.6-0.9/0.6-1.0 cm LVIDd: 3.73 3.9-5.3/4.2-5.9 cm LVIDd Index: 2.12 2.4-3.2/2.2-3.1 cm/m2 LVIDs: 2.51 2.0-3.6 cm LVPWd: 1.43 0.7-1.1 cm Ao Root: 3.40 2.1-3.5 cm LA Diam: 5.00 2.7-3.8/3.0-4.0 cm LAIDs Index: 2.84 1.5-2.3 cm/m2 LV Mass: 261.63 67-162/88-224 g LV Mass Index: 148.65 43-95/49-115 g/m2 LVOT Diam: 2.20 3.0+(-)1.3 cm 2D Systolic Function EF 4C: 55.70 >55% EF 2C: 59.20 >55% EF BiP: 57.30 >55% Mitral Valve MV Pk E: 1.02 MV PK A: 0.93 MV Decel Time: 258.00 E/A: 1.10 E'Lateral: 5.98 E'Medial: 4.03 E/E' Med: 25.30 E/E' Lat: 17.10 PHT: 76.00 MVA PHT: 2.89 Decel [place]: 3.93 Aortic Valve AoV Pk Tho: 0.96 AoV Mn Tho: 0.64 AoV VTI: 0.22 AoV Pk Grad: 4.00 Aov Mn Grad: 2.00 CESAR Cont.VTI: 3.46 LVOT LVOT Pk Tho: 0.84 LVOT Mn Tho: 0.56 LVOT VTI: 0.20 LVOT Pk Grad: 3.00 LVOT Mn Grad: 1.00 LVOT Diam: 2.20 LVOT Area: 3.80 Diastolic Function MV Pk E: 1.02 MV Pk A: 0.93 E/A: 1.10 E'Medial: 4.03 E/E' Med: 25.30 E' Laterial: 5.98 E/E' Lat: 17.10 Right Ventricle TAPSE (mm): 18.00 TVS' Tho: 8.38 Tricuspid Valve TR Pk Tho: 1.92 TR Pk Grad: 15.00 RA Press: 3.00 RVSP: 18.00 Great Vessels Aorta Ao Root-2D: 3.40 2.0-3.7 cm Ao Asc: 3.50 2.1-3.4 cm Pulmonary Valve PV Pk Tho: 0.78 Peak PV Grad: 2.00 Updated in Other Vendor System with Status of Final Holden Lau MD electronically signed on 04/16/2024 9:00:52 AM with status of Final
== END ==
LOC: HO.CARD 10:49
PROVIDERS: PCP Internal Medicine; Visit Provider Internal Medicine
DX: R01.1 Cardiac murmur, unspecified (principal)
CPT/HCPCS: 93306

== ENCOUNTER → 2024-04-14 10:53 | Outpatient (BNV) | payer OTHER, SELFPAY | PROVIDERS: PCP Internal Medicine; Visit Provider Internal Medicine | DX: I34.81 Nonrheumatic mitral (valve) annulus calcification (principal); R93.1 Abnormal findings on diagnostic imaging of heart and coronary circulation | CPT/HCPCS: 93306 ==

== ENCOUNTER → 2025-05-02 23:59 | Outpatient (BNV) | payer OTHER, SELFPAY | PROVIDERS: PCP Internal Medicine; Visit Provider Internal Medicine | DX: E11.51 Type 2 diabetes mellitus with diabetic peripheral angiopathy without gangrene (principal); I10 Essential (primary) hypertension; J18.9 Pneumonia, unspecified organism | CPT/HCPCS: G0180 ==